=== PATIENT | male | born 1990 | race Caucasian/White ===

== ENCOUNTER 2016-07-13 20:52 | Emergency (ER) | payer MEDICAID ==
[2016-07-13] MEDS ORDERED: METHYLPRED SOD SUCC 125 MG/2 ML VIAL ONE (22:43)
[2016-07-13] MEDS ORDERED: TRAMADOL 50 MG TAB ONE (22:43)
[2016-07-13] MEDS ORDERED: NEB-ALBUTEROL 2.5 MG/3 ML INH ONE (22:57)
== END 2016-07-14 01:16 | disposition home or self-care (01) ==
LOC: ER 20:52
DX: R06.00 Dyspnea, unspecified (principal); R07.9 Chest pain, unspecified; R07.1 Chest pain on breathing
CPT/HCPCS: 36415; 71020; 80048; 85025; 85379; 85610; 85730; 94640; 96372